=== PATIENT | female | born 1940 | race Caucasian/White ===

== ENCOUNTER → 2019-12-06 10:53 | Outpatient (CLI) | payer MEDICARE, SELFPAY ==
[2019-12-06 13:09] LABS: Coronavirus 19 IgG Antibody Negative (Negative); Coronavirus 19 IgM Antibody Negative (Negative)
== END ==
PROVIDERS: Visit Provider Internal Medicine Gastroenterology
DX: Z01.818 Encounter for other preprocedural examination (principal)
CPT/HCPCS: 36415; 86328

== ENCOUNTER 2019-12-09 09:04 | Day surgery (SDC) | payer MEDICARE, OTHER, SELFPAY ==
[2019-12-03 14:05] VITALS: BMI 30.3
[2019-12-09 09:47] VITALS: BP 166/72; PULSE 67; RESP 18; TEMP 36.6; O2SAT 94
[2019-12-09 10:58] VITALS: O2SAT 98
--- NOTE | 2019-12-09 11:04 | HMH.ANESCL ---
[facility] Anesthesia Checklist - Patient Identification Patient Identification: Arm Band - Structural Data Admitted From: Home Planned Operative Procedure/s: colonoscopy Consent for Planned Operative Procedure(s) Verified: Yes Verified Documents: Surgical Consent, History and Physical - NPO Status Verified Time NPO: 00:00 - Additional verifications Anesthesia Reactions: No - Airway Assessment C-Spine Mobility Assessed: Yes (mp2) TMJ Mobility Assessed: Yes Dentition: Dentures-good fit - Neurological Assessment Level of Consciousness: Awake, Alert - Anesthesia Plan Anesthesia Risk discussed: Yes Anesthesia Plan: Verified ASA Class: III Anesthesia Type: MAC [facility] History I have reviewed the patient's past medical history: Yes Medical History: Reports:: Coronary Artery Disease, Gastroesophageal Reflux Disease(GERD), Hyperlipidemia, Hypertension, Lung Disease (jo ann) Denies:: Cancer, Diabetes Mellitus Type 1, Diabetes Mellitus Type 2, Internal Pacemaker, MRSA, Seizures *Have you ever received a pneumonia vaccine?: Yes *Have you received a flu vaccine this season?: Yes Anesthesia experience/problems:: nac Other Surgeries: Yes: Appendectomy, Coronary Stent, Hysterectomy-Total, Tubal Ligation, Other. No: Pacemaker Amputation: No Fractures: No - *Social History Alcohol Intake: never Substance Use Type: denies use *Occupational Status:: retired Housing: house Household Members: children *Travel in the last 8 weeks: None Family Hx:: No significant family history
--- NOTE | 2019-12-09 11:33 | P.PCN_ITS ---
[facility] Procedure Note Procedure Note:: Colonoscopy Procedure Report: Colonoscopy with cold snare polypectomy and APC argon ablation Endoscopist: Noel Cárdenas II, MD Referring physician: Santa Abrams MD/Kobi Vick MD Date of Procedure: December 09, 2019 Equipment: Olympus 180 variable stiffness pediatric colonoscope Sedation: MAC sedation Indication: Mrs. Laguna is a 79-year-old female with a history of an advanced adenomatous ascending colon polyp. This was removed initially in August 2014 with piecemeal removal. She did return in September 2017 and had the elongated 45 mm ray-circumferential adenomatous polyp. I did do endoscopic mucosal resection at that time. She had 4 additional adenomatous polyps that were diminutive. She returns today for repeat high risk screening. Her mother had colon cancer at the age of 83. She reports no abdominal pain, weight loss, change in her bowel habits or rectal bleeding. Procedure: Prior to the procedure, a history and physical exam was performed, and patient's medications and allergies were reviewed. The risks, benefits and alternatives of the sedation and procedure were discussed with the patient. All questions were answered and informed consent was obtained. The patient was brought to the procedure room. Patient identification and proposed procedure were verified by the physician and the nurse. The patient was placed in a left lateral decubitus position and the scope was passed under direct vision. Throughout the procedure, the patient's blood pressure, pulse, and oxygen saturations were monitored continuously. The colonoscopy was accomplished without difficulty. The patient tolerated the procedure well. Findings: On digital rectal examination there was normal rectal tone. There were no external hemorrhoids. The colonoscope was introduced through the anal canal to the rectum and advanced to the cecum. The ileocecal valve and appendiceal orifice were identified. The scope was advanced a short distance into the ileum which appeared grossly normal. The scope was then withdrawn into the colon. There was a 5 mm polyp in the cecum removed via cold snare polypectomy. Within the proximal ascending colon was a very long haustral fold based polyp along the ridge of the haustral fold that was a laterally spreading granular adenomatous polyp that was approximately 35 to 40 mm in length and maximally 9 or 10 mm in width. Most of this was behind the haustral fold. The scope was retroflexed to see this more clearly and this was resected in piecemeal using the cold snare to completely resect all identifiable sessile polyp. After resection, the APC argon laser was used to coat the surface to cauterize the polypectomy site completely. The remainder of the ascending, transverse and descending colon were normal. There were a few scattered diverticuli in the distal descending and sigmoid colon. Upon retroflexion within the rectum there were grade 1 internal hemorrhoids.The preparation was excellent throughout with [place] Preparation Score of 9. The cecal time was 22 minutes. Impression: 1. Large/elongated adenomatous polyp (proximal ascending colon)?residual polyp (10 x 40 mm) status post piecemeal removal and APC ablation 2. Diminutive cecal polyp 3. Mild left-sided diverticulosis 4. Grade 1 internal hemorrhoids Plan: I would prefer that we do repeat surveillance colonoscopy in 3 to 6 months until this is completely resected based upon the advanced adenomatous nature. I will discussed the findings with patient and family.
[2019-12-09 11:35] VITALS: BP 124/56; PULSE 62; RESP 18; TEMP 36.4; O2SAT 94
[2019-12-09 11:45] VITALS: BP 146/81; PULSE 60; RESP 18; O2SAT 97
[2019-12-09 11:55] VITALS: BP 181/72; PULSE 56; RESP 18; O2SAT 99
[2019-12-09 12:17] VITALS: BP 141/58; PULSE 54; RESP 18; O2SAT 99
== END 2019-12-09 12:25 | disposition home or self-care (01) ==
LOC: OUTP 09:12
PROVIDERS: PCP Family Medicine; Visit Provider Internal Medicine Gastroenterology
PROC: 0DJD8ZZ Inspection of Lower Intestinal Tract, Via Natural or Artificial Opening Endoscopic (ICD-10-PCS; CPT 45378; principal; 2019-12-09 10:30)
DX: Z12.11 Encounter for screening for malignant neoplasm of colon (principal); K64.0 First degree hemorrhoids; D12.2 Benign neoplasm of ascending colon; K63.5 Polyp of colon; K57.30 Diverticulosis of large intestine without perforation or abscess without bleeding; Z87.19 Personal history of other diseases of the digestive system; I25.10 Atherosclerotic heart disease of native coronary artery without angina pectoris; I10 Essential (primary) hypertension; E78.5 Hyperlipidemia, unspecified; K21.9 Gastro-esophageal reflux disease without esophagitis; G47.33 Obstructive sleep apnea (adult) (pediatric); Z79.899 Other long term (current) drug therapy
CPT/HCPCS: 45385; 45388; 88305; C2618

== ENCOUNTER → 2020-02-29 10:59 | Outpatient (CLI) | payer MEDICARE, OTHER, SELFPAY ==
[2020-02-29 15:52] LABS: Coronavirus 19 IgG Antibody Positive (Negative)
[2020-02-29 15:53] LABS: Coronavirus 19 IgM Antibody Positive (Negative)
== END ==
PROVIDERS: Visit Provider Internal Medicine Gastroenterology
DX: Z01.84 Encounter for antibody response examination (principal); U07.1 COVID-19; Z12.11 Encounter for screening for malignant neoplasm of colon
CPT/HCPCS: 36415; 86328

== ENCOUNTER → 2020-02-29 18:09 | Outpatient (CLI) | payer MEDICARE, OTHER, SELFPAY | PROVIDERS: PCP Family Medicine; Visit Provider Internal Medicine Gastroenterology | DX: Z03.818 Encounter for observation for suspected exposure to other biological agents ruled out (principal) | CPT/HCPCS: 36415; 86328; U0003 ==

== ENCOUNTER 2020-03-02 06:45 | Day surgery (SDC) | payer MEDICARE, OTHER, SELFPAY ==
[2020-02-25 09:29] VITALS: BMI 68.1
[2020-03-02 07:03] VITALS: BP 124/66; PULSE 84; RESP 20; TEMP 36.3; O2SAT 96
--- NOTE | 2020-03-02 07:46 | P.PCN_ITS ---
[facility] Procedure Note Procedure Note:: Colonoscopy Procedure Report: Colonoscopy with snare cautery, cold snare polypectomy and APC ablation Endoscopist: Noel Cárdenas II, MD Referring physician: Santa Abrams MD Date of Procedure: March 02, 2020 Equipment: Olympus 180 variable stiffness pediatric colonoscope Sedation: MAC sedation Indication: Mrs. Laguna is an 80-year-old female with a history of an advanced adenomatous ascending colon polyp that was large and elongated and she has had piecemeal removal. She did have residual regrowth at the time of her last colonoscopy on December 09, 2019. This was 10 x 40 mm. It was removed and then the site was ablated using the APC argon coagulation. The patient's mother had colon cancer at the age of 83. The patient has no abdominal complaints. Procedure: Prior to the procedure, a history and physical exam was performed, and patient's medications and allergies were reviewed. The risks, benefits and alternatives of the sedation and procedure were discussed with the patient. All questions were answered and informed consent was obtained. The patient was brought to the procedure room. Patient identification and proposed procedure were verified by the physician and the nurse. The patient was placed in a left lateral decubitus position and the scope was passed under direct vision. Throughout the procedure, the patient's blood pressure, pulse, and oxygen saturations were monitored continuously. The colonoscopy was accomplished without difficulty. The patient tolerated the procedure well. Findings: On digital rectal examination there was normal rectal tone. There were no external hemorrhoids. The colonoscope was introduced through the anal canal to the rectum and advanced to the cecum. The ileocecal valve and appendiceal orifice were identified. The scope was advanced a short distance into the ileum which appeared grossly normal. The scope was then withdrawn into the colon. The cecum was normal. Within the ascending colon there was some residual (but much there smaller volume) of the elongated ascending polyp. Once again, this was removed largely in piecemeal because it was on a long fold. Snare cautery was used initially to remove the largest sections and then the remainder of residual was removed via the cold snare. The polypectomy site was once again ablated using the APC ablation. The size of this polyp now would be 35 x 4 mm (still large but markedly less voluminous). There were mildly scattered diverticuli throughout the descending and sigmoid colon (LEFT colon). The rectum itself was normal. Upon retroflexion within the rectum there were grade 1 internal hemorrhoids. The preparation was excellent throughout with [place] Preparation Score of 9. The cecal time was 18 minutes. Impression: 1. Residual ascending advanced adenoma (35 x 4 mm?markedly reduced volume/size from previously) Plan: I am going to have the patient follow-up for repeat surveillance in 6 months now. I would not go beyond this surveillance time until this has been completely excised.
[2020-03-02 07:47] VITALS: O2SAT 97
--- NOTE | 2020-03-02 07:52 | HMH.ANESCL ---
[facility] Anesthesia Checklist - Structural Data Admitted From: Home Planned Operative Procedure/s: colonoscopy Consent for Planned Operative Procedure(s) Verified: Yes - Additional verifications Anesthesia Reactions: No - Airway Assessment C-Spine Mobility Assessed: Yes TMJ Mobility Assessed: Yes Dentition: Dentures-good fit - Neurological Assessment Level of Consciousness: Awake, Alert, Appropriate - Anesthesia Plan Anesthesia Risk discussed: Yes Anesthesia Plan: Verified ASA Class: III Anesthesia Type: MAC [facility] History I have reviewed the patient's past medical history: Yes Medical History: Reports:: Coronary Artery Disease, Gastroesophageal Reflux Disease(GERD), Hyperlipidemia, Hypertension, Lung Disease (jo ann) Denies:: Cancer, Diabetes Mellitus Type 1, Diabetes Mellitus Type 2, Internal Pacemaker, MRSA, Seizures *Have you ever received a pneumonia vaccine?: Yes *Have you received a flu vaccine this season?: Yes Anesthesia experience/problems:: none Other Surgeries: Yes: Appendectomy, Cardiac Catheterization, Coronary Stent, Hysterectomy-Total, Tubal Ligation, Other. No: Pacemaker Amputation: No Fractures: No - *Social History Last grade of school completed: High school graduate Smoking Status: Never smoker Alcohol Intake: never Substance Use Type: denies use *Occupational Status:: retired Housing: house Household Members: family *Travel in the last 8 weeks: None Family Hx:: Cancer, Diabetes, Hypertension, Stroke
[2020-03-02 08:25] VITALS: BP 114/54; PULSE 61; RESP 12; TEMP 36.7; O2SAT 92
[2020-03-02 08:35] VITALS: BP 117/63; PULSE 64; RESP 16; O2SAT 95
[2020-03-02 08:45] VITALS: BP 115/70; PULSE 63; RESP 16; O2SAT 96
[2020-03-02 08:55] VITALS: BP 127/59; PULSE 61; RESP 16; TEMP 36.7; O2SAT 98
== END 2020-03-02 09:07 | disposition home or self-care (01) ==
LOC: OUTP 06:47
PROVIDERS: PCP Family Medicine; Visit Provider Internal Medicine Gastroenterology
PROC: 0DJD8ZZ Inspection of Lower Intestinal Tract, Via Natural or Artificial Opening Endoscopic (ICD-10-PCS; CPT 45378; principal; 2020-03-02 08:00)
DX: Z12.11 Encounter for screening for malignant neoplasm of colon (principal); Z87.19 Personal history of other diseases of the digestive system; Z80.0 Family history of malignant neoplasm of digestive organs; D12.2 Benign neoplasm of ascending colon; I25.10 Atherosclerotic heart disease of native coronary artery without angina pectoris; K21.9 Gastro-esophageal reflux disease without esophagitis; E78.5 Hyperlipidemia, unspecified; I10 Essential (primary) hypertension; G47.33 Obstructive sleep apnea (adult) (pediatric)
CPT/HCPCS: 45378; 88305; C2618; J2704

== ENCOUNTER → 2020-09-02 10:42 | Outpatient (CLI) | payer MEDICARE, OTHER, SELFPAY ==
[2020-09-02 11:38] LABS: Coronavirus 19 IgG Antibody Positive (Negative); Coronavirus 19 IgM Antibody Negative (Negative)
== END ==
PROVIDERS: Visit Provider Internal Medicine Gastroenterology
DX: Z01.812 Encounter for preprocedural laboratory examination (principal); Z11.52 Encounter for screening for COVID-19; Z12.11 Encounter for screening for malignant neoplasm of colon
CPT/HCPCS: 36415; 86328

== ENCOUNTER 2020-09-04 06:46 | Day surgery (SDC) | payer MEDICARE, OTHER, SELFPAY ==
[2020-08-25 09:38] VITALS: BMI 31.0
[2020-09-04 07:10] VITALS: BP 168/67; PULSE 87; RESP 18; TEMP 36.6; O2SAT 94
--- NOTE | 2020-09-04 07:55 | P.PN_ITS ---
[facility] Anesthesia Checklist - Structural Data Admitted From: Home Planned Operative Procedure/s: colonoscopy Consent for Planned Operative Procedure(s) Verified: Yes - Additional verifications Anesthesia Reactions: No - Airway Assessment C-Spine Mobility Assessed: Yes TMJ Mobility Assessed: Yes Dentition: Dentures-good fit - Neurological Assessment Level of Consciousness: Awake, Alert, Appropriate - Anesthesia Plan Anesthesia Risk discussed: Yes Anesthesia Plan: Verified ASA Class: III Anesthesia Type: MAC [facility] History I have reviewed the patient's past medical history: Yes Medical History: Reports:: Coronary Artery Disease, Gastroesophageal Reflux Disease(GERD), Hyperlipidemia, Hypertension, Lung Disease (jo ann) Denies:: Cancer, Diabetes Mellitus Type 1, Diabetes Mellitus Type 2, Internal Pacemaker, MRSA, Seizures *Have you ever received a pneumonia vaccine?: Yes *Have you received a flu vaccine this season?: Yes Anesthesia experience/problems:: none Laterality Cases: Bilateral: Cataract Other Surgeries: Yes: Appendectomy, Cardiac Catheterization, Coronary Stent, Hysterectomy-Total, Tubal Ligation, Other. No: Pacemaker Amputation: No Fractures: No - *Social History Last grade of school completed: High school graduate Smoking Status: Former smoker Tobacco Type: cigarettes #Yrs smoked (if former smoker): 15 Smoking End Date: 35 years ago Alcohol Intake: never Substance Use Type: denies use *Occupational Status:: retired Housing: house Household Members: children *Travel in the last 8 weeks: None Family Hx:: Cancer, Stroke
[2020-09-04 07:57] VITALS: O2SAT 97
--- NOTE | 2020-09-04 07:59 | P.PCN_ITS ---
[facility] Procedure Note Procedure Note:: Colonoscopy Procedure Report: Colonoscopy with cold snare polypectomy Endoscopist: Noel Cárdenas II, MD Referring physician: Santa Abrams MD Date of Procedure: September 04, 2020 Equipment: Olympus 190 variable stiffness pediatric colonoscope Sedation: MAC sedation Indication: Mrs. Laguna is an 80-year-old female with a history of a large advanced adenomatous ascending colon polyp that has been removed previously in November 2019 and again in February 2020. Pathology showed this to be a large tubu lar adenoma without dysplasia. The patient reports no abdominal pain, weight loss, change in bowel habits or rectal bleeding. Her mother had colon cancer at the age of 83. Procedure: Prior to the procedure, a history and physical exam was performed, and patient's medications and allergies were reviewed. The risks, benefits and alternatives of the sedation and procedure were discussed with the patient. All questions were answered and informed consent was obtained. The patient was brought to the procedure room. Patient identification and proposed procedure were verified by the physician and the nurse. The patient was placed in a left lateral decubitus position and the scope was passed under direct vision. Throughout the procedure, the patient's blood pressure, pulse, and oxygen saturations were monitored continuously. The colonoscopy was accomplished without difficulty. The patient tolerated the procedure well. Findings: On digital rectal examination there was normal rectal tone. There were no external hemorrhoids. The colonoscope was introduced through the anal canal to the rectum and advanced to the cecum. The ileocecal valve and appendiceal orifice were identified. The scope was advanced a short distance into the ileum which appeared grossly normal. The scope was then withdrawn into the colon. The cecum was normal. The ascending colon was examined very carefully and there was no evidence of any residual ascending large polyp. There were 2 diminutive polyps that were placed in the ascending formalin jar but were closer to the hepatic flexure and were 2 to 3 mm maximally. The remainder of the transverse and descending colon were normal. There were scattered diverticuli throughout the descending and sigmoid colon (LEFT colon). The rectum itself was normal. Upon retroflexion within the rectum there were grade 1 internal hemorrhoids. The preparation was excellent throughout with [place] Preparation Score of 9. The cecal time was 12 minutes. Impression: 1. No residual ascending polyp 2. 2 additional diminutive hepatic flexure polyps (2 and 3 mm) 3. Left-sided diverticulosis 4. Grade 1 internal hemorrhoids Plan: I will now increase his surveillance interval to 2 years as long she remains healthy and willing primarily because of potential of recurrence or new advanced adenomatous polyps and her strong family history.
[2020-09-04 08:20] VITALS: BP 112/47; PULSE 68; RESP 18; TEMP 36.6; O2SAT 92
[2020-09-04 08:30] VITALS: BP 137/56; PULSE 61; RESP 18; O2SAT 95
[2020-09-04 08:40] VITALS: BP 165/69; PULSE 61; RESP 18; O2SAT 97
[2020-09-04 08:58] VITALS: BP 127/75; PULSE 66; RESP 18; O2SAT 97
== END 2020-09-04 09:02 | disposition home or self-care (01) ==
LOC: OUTP 06:50
PROVIDERS: PCP Family Medicine; Visit Provider Internal Medicine Gastroenterology
PROC: 0DJD8ZZ Inspection of Lower Intestinal Tract, Via Natural or Artificial Opening Endoscopic (ICD-10-PCS; CPT 45378; principal; 2020-09-04 08:00)
DX: Z86.010 Personal history of colon polyps (principal); K63.5 Polyp of colon; K57.30 Diverticulosis of large intestine without perforation or abscess without bleeding; K64.0 First degree hemorrhoids; Z80.0 Family history of malignant neoplasm of digestive organs; I25.10 Atherosclerotic heart disease of native coronary artery without angina pectoris; K21.9 Gastro-esophageal reflux disease without esophagitis; E78.5 Hyperlipidemia, unspecified; I10 Essential (primary) hypertension; G47.33 Obstructive sleep apnea (adult) (pediatric); Z90.49 Acquired absence of other specified parts of digestive tract; Z87.891 Personal history of nicotine dependence
CPT/HCPCS: 45385; 88305